=== PATIENT | male | born 1965 | race Caucasian/White ===

== ENCOUNTER → 2016-09-28 | Outpatient (CLI) | payer OTHER | LOC: RAD 16:28 | PROVIDERS: ATTEND Family Medicine | DX: M25.512 Pain in left shoulder (principal); M25.511 Pain in right shoulder ==

== ENCOUNTER → 2016-12-28 | Day surgery (SDC) | payer OTHER | LOC: RAD 13:12 | PROVIDERS: ATTEND Family Medicine | PROC: BP09ZZZ Plain Radiography of Left Shoulder (ICD-10-PCS; principal; 2016-12-28) | DX: M24.812 Other specific joint derangements of left shoulder, not elsewhere classified (principal); M25.511 Pain in right shoulder | CPT/HCPCS: 73222; 73040; 77002; A9576 ==

== ENCOUNTER → 2016-12-31 | Day surgery (SDC) | payer OTHER | LOC: RAD 13:24 | PROVIDERS: ATTEND Family Medicine | PROC: BP08ZZZ Plain Radiography of Right Shoulder (ICD-10-PCS; principal; 2016-12-31) | DX: M25.511 Pain in right shoulder (principal); M25.512 Pain in left shoulder | CPT/HCPCS: 73222; 73040; 77002; A9576 ==

== ENCOUNTER → 2017-01-08 | Day surgery (SDC) | payer OTHER ==
[~2017-01-08] MED LIST: BUPIVACAINE HCL 0.5 % INJ/PF 30 ML SDV ONE; METHYLPREDNISOLONE ACETATE INJ 40 MG/1 ML ML ONE
== END ==
LOC: RAD 14:14
PROVIDERS: ATTEND Family Medicine
PROC: 3E0U33Z Introduction of Anti-inflammatory into Joints, Percutaneous Approach (ICD-10-PCS; principal; 2017-01-08)
DX: M25.512 Pain in left shoulder (principal)
CPT/HCPCS: 20610; 73020; 77002; J1020

== ENCOUNTER → 2017-01-20 | Day surgery (SDC) | payer OTHER ==
[~2017-01-20] MED LIST changes: +LIDOCAINE 1% INJ-PF (10 MG/ML) 30 ML SDV ONE
== END ==
LOC: RAD 14:46
PROVIDERS: ATTEND Family Medicine
PROC: 3E0U33Z Introduction of Anti-inflammatory into Joints, Percutaneous Approach (ICD-10-PCS; principal; 2017-01-20)
DX: M25.511 Pain in right shoulder (principal)
CPT/HCPCS: 20610; 73020; 77002; J3490; J1020